=== PATIENT | female | born 1990 | race Caucasian/White ===

== ENCOUNTER 2018-01-04 20:56 | Emergency (ER) | payer OTHER ==
[~2018-01-04] VITALS: Ht 154.9 cm; Wt 69.4 kg
[~2018-01-04 20:56] MED LIST: ALBUTEROL0.09 MG/A2 INH; AMOXICILLIN500 MG PO; AMOXIL500 MG PO; ANAPROX DS550 MG PO; BACTRIM DS 8001 TA1 PO; BENADRYL25 M2 PO; CEFDINIR300 MG PO; COLACE100 MG PO; DELTASONE20 MG PO; FE-TABS325 MG PO; FLONASE 0.05% 121 EA NAS; LIDOCAINE VISC100 ML MM; MACROBID100 M1 PO; MOTRIN 800 MG E4 TAB PO; MOTRIN800 MG PO; NAPROSYN500 MG PO; NO DAILY MEDS; PREDNISONE10 MG PO; PRENATAL1 TA1; PRENATAL1 TA3 PO; ULTRAM 50 MG ED2 TAB PO; ZANTAC 300300 MG PO; ZITHROMAX Z-PA250 MG PO
[2018-01-04] MEDS ORDERED: AMOXICILLIN500 M2 PO (22:39)
[2018-01-05] MEDS ORDERED: BROMFED DM COU118 M2 PO (21:00)
== END 2018-01-04 22:43 | disposition home or self-care (01) ==
LOC: ED 20:56
DX: H66.93 Otitis media, unspecified, bilateral (principal); Z79.899 Other long term (current) drug therapy; Z91.040 Latex allergy status

== ENCOUNTER 2018-01-05 18:49 | Emergency (ER) | payer OTHER ==
[~2018-01-05] VITALS: Ht 154.9 cm; Wt 69.4 kg
[~2018-01-05 18:49] MED LIST changes: +AMOXICILLIN500 M2 PO
[2018-01-05] MEDS ORDERED: BROMFED DM COU118 M2 PO (21:00)
== END 2018-01-05 21:23 | disposition home or self-care (01) ==
LOC: ED 18:49
DX: H66.93 Otitis media, unspecified, bilateral (principal); R05 Cough; Z91.040 Latex allergy status

== ENCOUNTER 2019-08-03 08:57 | Emergency (ER) | payer OTHER ==
[~2019-08-03] VITALS: Ht 157.4 cm; Wt 72.6 kg
[~2019-08-03 08:57] MED LIST changes: +BROMFED DM COU118 M2 PO
[2019-08-03 09:30] LABS: BASO # 0.1 10*3/uL (0.0-0.1); BASO % 0.7 % (0.0-1.0); EOS # 0.3 10*3/uL (0.0-0.4); EOS % 3.3 % (1.0-4.0); HEMATOCRIT 44.6 % (37.0-47.0); HEMOGLOBIN 14.7 g/dl (12.0-16.0); LYMPH % 22.3 % (27.0-41.0); MEAN CORPUSCULAR HGB 30.3 pg (27.0-31.0); MEAN PLATELET VOLUME 10.9 fl (9.6-12.3); MONO # 0.7 10*3/uL (0.1-1.0); MONO % 7.5 % (3.0-9.0); NEUT % 65.9 % (47.0-73.0); PLATELET COUNT AUTOMATED 340 10*3/uL (130-400); RED BLOOD COUNT 4.85 10*6/uL (4.10-5.10); RED CELL DISTRI WIDTH 13.6 % (0-14.5)
[2019-08-03 10:02] LABS: ALBUMIN 3.8 gm/dl (3.1-4.5); ALKALINE PHOSPHATASE 114 U/L (45-117); BUN 9 mg/dl (7-24); CHLORIDE 112 mmol/L (98-107); CREATININE 0.72 mg/dL (0.55-1.02); POTASSIUM 4.9 mmol/L (3.5-5.1); SGOT/AST 48 IU/L (3-35); SGPT/ALT 28 U/L (12-78); SODIUM 139 mmol/L (136-145); TOTAL PROTEIN 7.3 gm/dL (6.4-8.2)
[2019-08-03 11:57] LABS: BILIRUBIN 1+ (NEGATIVE); BLOOD 3+ (NEGATIVE); CLARITY CLOUDY (CLEAR); COLOR YELLOW (YELLOW); GLUCOSE NEGATIVE (NEGATIVE); KETONE NEGATIVE (NEGATIVE); LEUKO ESTERASE TRACE (NEGATIVE); NITRITE NEGATIVE (NEGATIVE); SPECIFIC GRAVITY 1.025 (1.005-1.030); UROBILINOGEN 0.2 E.U./dl (0.2-1.0)
[2019-08-03 12:16] LABS: BACTERIA 3+; RBC 51-100 rbc/hpf (0-2)
[2019-08-03 12:17] LABS: EPITHELIAL CELLS 16-20; MUCOUS 2+; WBC 16-20 wbc/hpf (0-5)
[2019-08-03] MEDS ORDERED: ZOFRAN4 MG PO (14:50)
[2019-08-03] MEDS ORDERED: NORCO 5-325 TA1 EACH PO (14:50)
[2019-08-03] MEDS ORDERED: SEPTDS PO (14:50)
== END 2019-08-03 15:06 | disposition home or self-care (01) ==
LOC: ED 08:57
PROVIDERS: Nurse Practitioner Family
DX: N13.2 Hydronephrosis with renal and ureteral calculous obstruction (principal); R11.2 Nausea with vomiting, unspecified; F17.200 Nicotine dependence, unspecified, uncomplicated; Z91.040 Latex allergy status

== ENCOUNTER 2020-07-14 22:02 | Emergency (ER) | payer OTHER ==
[~2020-07-14] VITALS: Ht 157.4 cm; Wt 71.7 kg
[~2020-07-14 22:02] MED LIST changes: +NORCO 5-325 TA1 EACH PO; +SEPTDS PO; +ZOFRAN4 MG PO
[2020-07-14] MEDS ORDERED: PREDNISONE10 MG PO (22:36)
== END 2020-07-14 23:05 | disposition home or self-care (01) ==
LOC: ED 22:02
DX: L23.9 Allergic contact dermatitis, unspecified cause (principal); Z91.040 Latex allergy status

== ENCOUNTER 2020-10-18 20:57 | Emergency (ER) | payer OTHER ==
[~2020-10-18] VITALS: Ht 157.4 cm; Wt 67.1 kg
[2020-10-18] MEDS ORDERED: ROBAXIN-750750 MG PO (23:33)
== END 2020-10-18 23:43 | disposition home or self-care (01) ==
LOC: ED 20:57
DX: S16.1XXA Strain of muscle, fascia and tendon at neck level, initial encounter (principal); S39.012A Strain of muscle, fascia and tendon of lower back, initial encounter; Z91.040 Latex allergy status; Z79.899 Other long term (current) drug therapy; V89.2XXA Person injured in unspecified motor-vehicle accident, traffic, initial encounter; Y93.89 Activity, other specified; Y92.89 Other specified places as the place of occurrence of the external cause; Y99.8 Other external cause status

== ENCOUNTER → 2021-02-28 | Outpatient (CLI) | payer OTHER ==
[~2021-02-28] MED LIST changes: +ROBAXIN-750750 MG PO
== END | disposition home or self-care (01) ==
LOC: US 10:30
PROVIDERS: ATTEND Nurse Practitioner Women's Health
DX: Z33.1 Pregnant state, incidental (principal)

== ENCOUNTER 2021-03-11 20:30 | Emergency (ER) | payer OTHER ==
[~2021-03-11] VITALS: Ht 157.4 cm; Wt 68.9 kg
[2021-03-11 23:10] LABS: BASO # 0.1 10*3/uL (0.0-0.1); BASO % 0.4 % (0.0-1.0); EOS # 0.2 10*3/uL (0.0-0.4); EOS % 1.5 % (1.0-4.0); HEMATOCRIT 41.2 % (37.0-47.0); LYMPH # 2.8 10*3/uL (1.3-4.4); LYMPH % 22.4 % (27.0-41.0); MEAN CORPUSCULAR HGB 31.4 pg (27.0-31.0); MEAN CORPUSCULAR HGB CONC 33.7 g/dl (33.0-37.0); MEAN PLATELET VOLUME 9.8 fl (9.6-12.3); MONO # 0.7 10*3/uL (0.1-1.0); MONO % 5.4 % (3.0-9.0); NEUT # 8.9 10*3/uL (2.3-7.9); PLATELET COUNT AUTOMATED 308 10*3/uL (130-400); RED BLOOD COUNT 4.43 10*6/uL (4.10-5.10); RED CELL DISTRI WIDTH 12.6 % (0-14.5); WHITE BLOOD COUNT 12.7 10*3/uL (4.8-10.8)
[2021-03-11 23:26] LABS: ALBUMIN 3.4 gm/dl (3.1-4.5); ALKALINE PHOSPHATASE 64 U/L (45-117); BUN 6 mg/dl (7-24); CHLORIDE 108 mmol/L (98-107); CREATININE 0.43 mg/dL (0.55-1.02); POTASSIUM 3.5 mmol/L (3.5-5.1); SGOT/AST 7 IU/L (3-35); SGPT/ALT 15 U/L (12-78); SODIUM 137 mmol/L (136-145); TOTAL PROTEIN 6.6 gm/dL (6.4-8.2)
[2021-03-11 23:28] LABS: TROPONIN I < 0.015 ng/ml (<0.045)
== END 2021-03-12 01:18 | disposition home or self-care (01) ==
LOC: ED 20:30
PROVIDERS: Emergency Medicine
DX: R07.89 Other chest pain (principal); F17.200 Nicotine dependence, unspecified, uncomplicated; Z91.040 Latex allergy status

== ENCOUNTER → 2021-04-28 | Outpatient (CLI) | payer OTHER | END | disposition home or self-care (01) | LOC: LAB 11:43 | PROVIDERS: ATTEND Obstetrics & Gynecology | DX: Z34.03 Encounter for supervision of normal first pregnancy, third trimester (principal); Z3A.28 28 weeks gestation of pregnancy ==

== ENCOUNTER 2021-04-30 12:16 | Emergency (ER) | payer OTHER | END 2021-04-30 12:50 | disposition home or self-care (01) | LOC: ED 12:16 | DX: O9A.212 Injury, poisoning and certain other consequences of external causes complicating pregnancy, second trimester (principal); R10.30 Lower abdominal pain, unspecified; M54.9 Dorsalgia, unspecified; Z3A.18 18 weeks gestation of pregnancy; Z91.040 Latex allergy status; Z79.899 Other long term (current) drug therapy; W01.0XXA Fall on same level from slipping, tripping and stumbling without subsequent striking against object, initial encounter; Y93.89 Activity, other specified; Y92.89 Other specified places as the place of occurrence of the external cause; Y99.8 Other external cause status ==

== ENCOUNTER → 2021-05-11 | Outpatient (CLI) | payer OTHER | END | disposition home or self-care (01) | LOC: US 11:00 | PROVIDERS: ATTEND Obstetrics & Gynecology | DX: O32.1XX0 Maternal care for breech presentation, not applicable or unspecified (principal); Z3A.19 19 weeks gestation of pregnancy ==

== ENCOUNTER 2021-05-16 17:32 | Emergency (ER) | payer OTHER ==
[~2021-05-16] VITALS: Ht 157.4 cm; Wt 68.0 kg
== END 2021-05-16 18:05 | disposition home or self-care (01) ==
LOC: ED 17:32
DX: O26.892 Other specified pregnancy related conditions, second trimester (principal); R10.2 Pelvic and perineal pain; Z91.040 Latex allergy status; Z79.899 Other long term (current) drug therapy; Z3A.21 21 weeks gestation of pregnancy

== ENCOUNTER → 2021-06-09 | Outpatient (CLI) | payer OTHER | END | disposition home or self-care (01) | LOC: US 11:00 | PROVIDERS: ATTEND Obstetrics & Gynecology | DX: O32.1XX0 Maternal care for breech presentation, not applicable or unspecified (principal); Z3A.24 24 weeks gestation of pregnancy ==

== ENCOUNTER → 2021-07-14 | Outpatient (CLI) | payer OTHER | END | disposition home or self-care (01) | LOC: US 10:30 | PROVIDERS: ATTEND Nurse Practitioner Women's Health | DX: Z34.83 Encounter for supervision of other normal pregnancy, third trimester (principal); Z3A.29 29 weeks gestation of pregnancy ==

== ENCOUNTER → 2021-07-21 | Outpatient (CLI) | payer OTHER | END | disposition home or self-care (01) | LOC: LAB 09:17 | PROVIDERS: ATTEND Nurse Practitioner Women's Health | DX: Z34.83 Encounter for supervision of other normal pregnancy, third trimester (principal); R73.09 Other abnormal glucose; Z3A.28 28 weeks gestation of pregnancy ==

== ENCOUNTER → 2021-07-26 | Outpatient (CLI) | payer OTHER | END | disposition home or self-care (01) | LOC: COVID19 18:21 | PROVIDERS: ATTEND Internal Medicine | DX: Z11.52 Encounter for screening for COVID-19 (principal) ==

== ENCOUNTER 2022-02-04 13:06 | Emergency (ER) | payer OTHER ==
[~2022-02-04] VITALS: Ht 157.4 cm; Wt 62.1 kg
[2022-02-04 13:48] LABS: BILIRUBIN Negative (Negative); BLOOD Negative (Negative); CLARITY Cloudy (Clear); COLOR Yellow (Yellow); GLUCOSE Negative (Negative); KETONE Trace (Negative); LEUKO ESTERASE Trace (Negative); NITRITE Negative (Negative); SPECIFIC GRAVITY >= 1.030 (1.001-1.030)
[2022-02-04 13:57] LABS: BACTERIA 2+; MUCOUS 2+
[2022-02-04] MEDS ORDERED: TYLENOL325 M1 PO (14:04)
[2022-02-04] MEDS ORDERED: NAPROXEN250 MG PO (14:04)
== END 2022-02-04 14:14 | disposition home or self-care (01) ==
LOC: ED 13:06
PROVIDERS: Emergency Medicine
DX: M54.50 Low back pain, unspecified (principal); Z91.040 Latex allergy status

== ENCOUNTER 2022-11-06 15:40 | Emergency (ER) | payer OTHER ==
[~2022-11-06] VITALS: Wt 59.9 kg
[~2022-11-06 15:40] MED LIST changes: +NAPROXEN250 MG PO; +TYLENOL325 M1 PO
[2022-11-06 19:08] LABS: ALKALINE PHOSPHATASE 86 U/L (46-116); BUN 5 mg/dl (9-23); CHLORIDE 103 mmol/L (98-107); CREATININE 0.58 mg/dL (0.55-1.02); POTASSIUM 3.4 mmol/L (3.4-5.1); SGPT/ALT 23 U/L (10-49)
[2022-11-06] MEDS ORDERED: TAMIFLU 75MG CA75 MG PO (19:27)
[2022-11-06 19:36] LABS: BASO % 0.2 % (0.0-1.0); EOS % 0.2 % (1.0-4.0); HEMATOCRIT 43.8 % (37.0-47.0); LYMPH % 19.5 % (27.0-41.0); MEAN CELL VOLUME 89.8 fl (81.0-99.0); MEAN CORPUSCULAR HGB 30.1 pg (27.0-31.0); MEAN CORPUSCULAR HGB CONC 33.6 g/dl (33.0-37.0); MEAN PLATELET VOLUME 10.2 fl (9.6-12.3); MONO # 0.5 10*3/uL (0.1-1.0); NEUT # 3.7 10*3/uL (2.3-7.9); NEUT % 70.9 % (47.0-73.0); PLATELET COUNT AUTOMATED 218 10*3/uL (130-400); RED BLOOD COUNT 4.88 10*6/uL (4.10-5.10); RED CELL DISTRI WIDTH 12.3 % (0-14.5); WHITE BLOOD COUNT 5.2 10*3/uL (4.8-10.8)
== END 2022-11-06 19:31 | disposition home or self-care (01) ==
LOC: ED 15:40
PROVIDERS: Nurse Practitioner Family
DX: J10.1 Influenza due to other identified influenza virus with other respiratory manifestations (principal); Z20.822 Contact with and (suspected) exposure to COVID-19; Z91.040 Latex allergy status

== ENCOUNTER 2023-04-16 14:36 | Emergency (ER) | payer OTHER ==
[~2023-04-16] VITALS: Ht 157.4 cm; Wt 59.9 kg
[~2023-04-16 14:36] MED LIST changes: +TAMIFLU 75MG CA75 MG PO
== END 2023-04-16 15:35 | disposition home or self-care (01) ==
LOC: ED 14:36
DX: H10.9 Unspecified conjunctivitis (principal); Z91.040 Latex allergy status

== ENCOUNTER 2024-07-31 20:15 | Emergency (ER) | payer OTHER ==
[~2024-07-31] VITALS: Ht 157.4 cm; Wt 71.7 kg
[2024-07-31] MEDS ORDERED: SODIUM CHLORIDE 0.9% 1,000 ML IV ONE (21:00)
[2024-07-31] MEDS ORDERED: Ketorolac Tromethamine 30 MG/ML VIAL IV ONE (21:00)
[2024-07-31] MEDS ORDERED: diphenhydrAMINE hydrochloride 50 MG/ML VIAL IV ONE (21:00)
[2024-07-31] MEDS ORDERED: Metoclopramide Hydrochloride 10 MG/2 ML AMP IV ONE (21:00)
[2024-07-31 21:13] LABS: BASO # 0.1 10*3/uL (0.0-0.1); BASO % 0.5 % (0.0-1.0); EOS # 0.4 10*3/uL (0.0-0.4); EOS % 3.4 % (1.0-4.0); HEMATOCRIT 42.8 % (37.0-47.0); LYMPH # 3.2 10*3/uL (1.3-4.4); LYMPH % 29.9 % (27.0-41.0); MEAN CELL VOLUME 90.5 fl (81.0-99.0); MEAN CORPUSCULAR HGB 29.8 pg (27.0-31.0); MEAN CORPUSCULAR HGB CONC 32.9 g/dl (33.0-37.0); MONO # 0.8 10*3/uL (0.1-1.0); MONO % 7.6 % (3.0-9.0); NEUT # 6.2 10*3/uL (2.3-7.9); NEUT % 58.1 % (47.0-73.0); PLATELET COUNT AUTOMATED 360 10*3/uL (130-400); RED BLOOD COUNT 4.73 10*6/uL (4.10-5.10); RED CELL DISTRI WIDTH 12.9 % (0-14.5); WHITE BLOOD COUNT 10.7 10*3/uL (4.8-10.8)
[2024-07-31 21:30] LABS: BUN 7 mg/dl (9-23); CHLORIDE 108 mmol/L (98-107); POTASSIUM 3.3 mmol/L (3.4-5.1)
[2024-07-31] MEDS ORDERED: REGLAN10 M1 PO (22:17)
== END 2024-07-31 22:35 | disposition home or self-care (01) ==
LOC: ED 20:15
PROVIDERS: Internal Medicine
DX: R51.9 Headache, unspecified (principal); H53.8 Other visual disturbances; R11.0 Nausea; Z91.040 Latex allergy status

== ENCOUNTER → 2025-07-29 | Outpatient (CLI) | payer OTHER ==
[~2025-07-29] MED LIST changes: +BIRTH CONTROL; +PRILOSEC20 M1 PO; +REGLAN10 M1 PO
== END | disposition home or self-care (01) ==
LOC: CARD 00:08
PROVIDERS: ATTEND Family Medicine
DX: I49.3 Ventricular premature depolarization (principal); R94.31 Abnormal electrocardiogram [ECG] [EKG]

== ENCOUNTER → 2025-08-20 | Outpatient (CLI) | payer OTHER ==
[2025-08-20 12:31] LABS: BASO # 0.0 10*3/uL (0.0-0.1); BASO % 0.4 % (0.0-1.0); EOS # 0.2 10*3/uL (0.0-0.4); EOS % 1.7 % (1.0-4.0); MEAN CELL VOLUME 90.5 fl (81.0-99.0); MEAN CORPUSCULAR HGB 29.8 pg (27.0-31.0); MEAN PLATELET VOLUME 10.7 fl (9.6-12.3); MONO # 0.7 10*3/uL (0.1-1.0); MONO % 6.6 % (3.0-9.0); NEUT # 6.7 10*3/uL (2.3-7.9); NEUT % 65.5 % (47.0-73.0); NUCLEATED RED BLOOD CELL 0.0 % (0.0-0.0); NUCLEATED RED BLOOD CELL 0.0 10*3/uL (0.0-0.0); PLATELET COUNT AUTOMATED 347 10*3/uL (130-400); RED CELL DISTRI WIDTH 12.9 % (0-14.5)
[2025-08-20 12:52] LABS: BUN 7 mg/dl (9-23); SGPT/ALT 27 U/L (5-49)
== END | disposition home or self-care (01) ==
LOC: LAB 11:48
PROVIDERS: ATTEND Family Medicine
DX: K52.9 Noninfective gastroenteritis and colitis, unspecified (principal)